=== PATIENT | male | born 1955 | race Caucasian/White ===

== ENCOUNTER → 2019-10-12 15:43 | Outpatient (CLI) | payer OTHER | END | disposition home or self-care (01) | LOC: D.LABREF 15:43 | PROVIDERS: ATTEND Urology | DX: I10 Essential (primary) hypertension (principal); R07.9 Chest pain, unspecified ==

== ENCOUNTER → 2019-10-18 08:08 | Outpatient (CLI) | payer OTHER | END | disposition home or self-care (01) | LOC: D.HCCECHO 08:08 | PROVIDERS: ATTEND Internal Medicine Cardiovascular Disease | DX: I10 Essential (primary) hypertension (principal); R07.9 Chest pain, unspecified ==

== ENCOUNTER 2019-10-29 11:52 | Outpatient (CLI) | payer OTHER ==
[~2019-10-29] VITALS: Ht 167.6 cm; Wt 90.5 kg
--- NOTE | ~2019-10-29 | HEMODYNAMI ---
PATIENT:ROBY HATCH MEDICAL RECORD: [id number] : 59 LOCATION:D.CAT ADMISSION DATE: 10/29/19 Generatedon:10/29/201914:33 Patient name: ROBY HATCH Patient #: [id number] SSN: [id number] : 1955 Date of study: 10/29/2019 Page: Of Hemodynamic Procedure Report Patient Data Patient Demographics Procedure consent was obtained First Name: ROBY Gender: Male Last Name: HOLDEN : 1955 [facility] Initial: TRACY Age: 64 year(s) Patient #: [id number] Race: Unknown SSN: [id number] Additional ID: [id number] Contact details Address: [address] [place] [address] State: [place] City: [place] Zip code: [address] Past Medical History Performed procedures and imaging results Date Procedure Procedure Results Comments Stress testing with Positive->High SPECT MPI risk Allergies Allergen Reaction Date Comments Reported Other allergy 10/29/2019 PCN, STATINS Admission Admission Data Admission Date: 10/29/2019 Admission Time: 11:52 Lab Results Lab Result Date: 10/29/2019 Lab Result Time: 0:00 Biochemistry Name Units Result Min Max BUN mg/dl 14 --(--*-)-- 7 18 Creatinine mg/dl 1.3 --(---*)-- 0.6 1.3 eGFR ml/min 59 *-(----)-- 90 120 NONAFRICAN CBC Name Units Result Min Max Hematocrit % 45.1 --(-*--)-- 42 54 Hemoglobin g/dl 15.8 --(--*-)-- 13.5 17.5 Procedure Procedure Types Cath Procedure Diagnostic Procedure C [facility] w/Coronaries Procedure Description Procedure Date Procedure Date: 10/29/2019 Procedure Start Time: 14:17 Procedure End Time: 14:32 Procedure Staff Name Function Kranthi Sierra MD Performing Physician Polo Rodriguez RN Nurse Yusra Saunders RT Scrub Brooklynn Mejía RT Monitor Linsey Aragon RT Monitor Procedure Data Cath Procedure Fluoroscopy Diagnostic fluoroscopy Total fluoroscopy Time: 3.8 time: 3.8 min min Diagnostic fluoroscopy Total fluoroscopy dose: 637 dose: 637 mGy mGy Contrast Material Contrast Material Type Amount (ml) Isovue 370 84 Entry Location Entry Primary Successful Side Size Upsize Upsize Entry Closure Mandel ccessful Closure Location (Fr) 1 (Fr) 2 (Fr) Remarks Device Remarks Radial Right 6 Fr Mechanical artery Short Compression Estimated blood loss: 5 ml Diagnostic catheters Device Type Used For End Catheter Placement DIAGNOSTIC Eric 110cm Procedure 5Fr catheter ([id number]) DIAGNOSTIC Ovando 110cm 5 Procedure Fr catheter (175134) Procedure Complications No complications Procedure Medications Medication Administration Route Dosage 0.9% NaCl I.V. 100 ml/hr Oxygen etCO2 Nasal cannula 2 l/min Heparin Flush Bag added to field 2 bags (1000units/500ml NS) Lidocaine 2% added to field 20 Radial Cocktail added to field 1 syringe (Verapamil 2mg/Nitro 400mcg/Heparin 1500units) Versed I.V. 2 mg Fentanyl I.V. 100 mcg Radial Cocktail I.A. 1 syringe (Verapamil 2mg/Nitro 400mcg/Heparin 1500units) Versed I.V. 2 mg Fentanyl I.V. 100 mcg Hemodynamics Rest HGB: 15.8 (g/dl) Heart Rate: 110 (bpm) Pressure Samples Time Site Value (mmHg) Purpose Heart Use Rate(bpm) 14:20 LV 124/-7,31 Snapshot 123 14:21 AO 87/56(64) Pullback 123 14:21 LV 123/-18,3 Pullback 123 Gradients Valve Time Site 1 Site 2 Mean SEP/DFP Peak To Heart Use (mmHg) (sec/min) Peak Rate (mmHg) (bpm) Aortic 14:21 LV AO 26 11 36 123 123/-18,3 87/56(64) Calculations Valve P-P Mean Valve Index Valve Source Name Gradient Area Flow (cm2) Aortic 36 26 36 26 Snapshots Pre Cath Intra NCS Post Cath Vital Signs Time Heart Resp SPO2 etCO2 NIBP (mmHg) Rhythm Pain Sedation Rate (ipm) (%) (mmHg) Status Level (bpm) 13:48:19 107 5 97 0 142/94(115) NSR 0 (11) 10(A) , No pain 13:52:26 108 3 95 30.6 133/98(107) NSR 0 (11) 10(A) , No pain 13:57:28 107 21 98 32.2 137/90(113) NSR 0 (11) 10(A) , No pain 14:01:34 110 15 96 29.2 134/94(113) NSR 0 (11) 10(A) , No pain 14:05:39 106 10 92 35.2 124/90(111) NSR 0 (11) 10(A) , No pain 14:09:41 109 17 93 36.7 128/95(107) NSR 0 (11) 10(A) , No pain 14:13:47 112 16 94 33.7 131/88(102) NSR 0 (11) 10(A) , No pain 14:17:53 110 11 92 1.4 122/90(102) NSR 0 (11) 9(A) , No pain 14:21:54 121 17 92 35.2 108/74(105) NSR 0 (11) 9(A) , No pain 14:25:54 112 16 92 37.4 106/76(99) NSR 0 (11) 10(A) , No pain 14:29:57 103 7 94 34.4 117/71(87) NSR 0 (11) 10(A) , No pain Medications Time Medication Route Dose Verified Delivered Reason Notes Effectiveness by by 13:49:35 0.9% NaCl I.V. 100 Polo Polo Per ml/hr Michael Rodriguez physician RN RN 13:49:45 Oxygen etCO2 2 l/min Polo Polo for low 02 Nasal Lorigan Lorigan sats cannula RN RN 13:49:57 Heparin Flush added 2 bags Polo Polo used for Bag to Lorigan Lorigan procedure (1000units/500ml field RN RN NS) 13:50:10 Lidocaine 2% added 20ml Polo Polo for local to vial Lorigan Lorigan anesthetic field DAWSON RN 13:50:20 Radial Cocktail added 1 Polo Polo used for (Verapamil to syringe Lorigan Lorigan procedure 2mg/Nitro field RN RN 400mcg/Heparin 1500units) 14:19:41 Versed I.V. 2 mg Polo Polo for sedation Michael Rodriguez RN RN 14:19:50 Fentanyl I.V. 100 mcg Polo Polo for sedation Michael Rodriguez RN, RN 14:20:02 Radial Cocktail I.A. 1 Polo Kranthi for (Verapamil syringe Michael Sierra MD vasodilation 2mg/Nitro RN 400mcg/Heparin 1500units) 14:21:40 Versed I.V. 2 mg Polo Polo for sedation Michael Rodriguez RN, RN 14:25:10 Fentanyl I.V. 100 mcg Polo Polo for sedation Michael Rodriguez RN, RN Procedure Log Time Note 13:36:47 Informed consent obtained and on chart 13:36:59 Polo Rodriguez RN sent for patient. Start room use. 13:37:01 Procedure Status Elective Heart Cath (OP). 13:37:03 Time tracking: Regular hours (M-F 7:00 - 5:00) 13:37:06 Plan of Care:Hemodynamics will remain stable., Cardiac rhythm will remain stable., Comfort level will be maintained., Respiratory function will remain adequate., Patient/ family verbilizes understanding of procedure., Procedure tolerated without complication., Recovers from procedure without complications.. 13:37:44 H&P Date Dictated: 10/05/2019 Within 30 days and on chart., H&P Addendum completed by physician on day of procedure. (MUST COMPLETE FOR ALL OUTPATIENTS). 13:38:00 Patient allergic to Other allergyPCN, STATINS 13:45:39 Patient received from Pre/Post Procedure Room to CCL 1 Alert and oriented. Tansferred to table in Supine position. 13:45:40 Warm blankets applied, and glo hugger turned on for patient comfort. 13:45:41 Correct patient and procedure confirmed by team. 13:45:41 ECG and BP/O2 sat monitors applied to patient. 13:47:07 Lab Result : BUN 14 mg/dl 13:47:07 Lab Result : Creatinine 1.3 mg/dl 13:47:07 Lab Result : eGFR NONAFRICAN 59 ml/min 13:47:07 Lab Result : Hemoglobin 15.8 g/dl 13:47:07 Lab Result : Hematocrit 45.1 % 13:47:14 Vital chart was started 13:47:15 Baseline sample Acquired. 13:47:19 Rhythm: sinus tachycardia 13:47:20 Full Disclosure recording started 13:47:29 Pre-procedure instructions explained to patient. 13:47:29 Pre-op teaching completed and patient verbalized understanding. 13:47:30 Family in patients room. 13:47:31 Patient NPO since Midnight. 13:47:33 Is the patient allergic to Iodine/contrast media? No. 13:47:34 Is patient on blood thinner?No 13:47:35 Patient diabetic? No. 13:47:39 Previous problem with sedation/anesthesia? No ? 13:47:40 Snore? Yes 13:47:41 Sleep apnea? Yes 13:47:43 Deviated septum? No 13:47:44 Opens mouth fully? Yes 13:47:45 Sticks out tongue? Yes 13:47:47 Airway obstruction? No ? 13:47:49 Dentures? No ? 13:47:53 Pre procedure: right dorsailis pedis pulse 1+ Palpable, but thready & weak; easily obliterated 13:47:55 Modified Shen's test Ulnar < 7 seconds 13:47:59 Patient pain scale 0/10 ?. 13:48:39 IV patent on arrival in left forearm with 0.9% NaCl at [facility]. 13:48:41 Lab results completed and on chart. 13:48:45 Right Radial & Right Groin area was prepped with chlora-prep and draped in sterile fashion 13:48:46 Alarms reviewed by R. N. 13:48:46 Sharps counted by scrub and verified by R.N. 13:49:35 0.9% NaCl 100 ml/hr I.V. was administered by Polo Rodriguez RN; Per physician; Verbal order read back and verified. 13:49:45 Oxygen 2 l/min etCO2 Nasal cannula was administered by Polo Rodriguez RN; for low 02 sats; Verbal order read back and verified. 13:49:57 Heparin Flush Bag (1000units/500ml NS) 2 bags added to field was administered by Polo Rodriguez RN; used for procedure; Verbal order read back and verified. 13:50:10 Lidocaine 2% 20ml vial added to field was administered by Polo Rodriguez RN; for local anesthetic; Verbal order read back and verified. 13:50:20 Radial Cocktail (Verapamil 2mg/Nitro 400mcg/Heparin 1500units) 1 syringe added to field was administered by Polo Rodriguez RN; used for procedure; Verbal order read back and verified. 13:52:57 Risk of Mortality: .1 13:53:00 Risk of blood transfusion: .1 13:53:02 Risk of GARLAND: 1 13:53:51 Stress Test: yes; abnormal ANTERIOR AND INFERIOR 13:58:36 Use device set Radial Dx or PCI 13:58:39 ACIST Syringe (21608) opened to sterile field. 13:58:39 Medline Cath Pack ([id number]) opened to sterile field. 13:58:41 Bag Decanter (2002S) opened to sterile field. 13:58:41 ACIST Hand Control (98434) opened to sterile field. 13:58:42 ACIST Manifold (40354) opened to sterile field. 13:58:43 Tegaderm 4 x 4 (1626W) opened to sterile field. 13:58:45 MBrace Wrist Support ([id number]) opened to sterile field. 13:58:47 NEEDLE Cook 21G 4cm Radial (Q83393) opened to sterile field. 13:58:48 SHEATH 6FR RAIN (0849656) opened to sterile field. 13:58:52 EMERALD Guide Wire (627-381) opened to sterile field. 14:14:52 --------ALL STOP TIME OUT------ 14:14:53 Final Timeout: patient, procedure, and site verified with staff and physician. All members of the team are in agreement. 14:14:56 Right Radial & Right Groin site verified by team. 14:15:00 Fire Safety Assessment: A--An alcohol-based skin anteseptic being used preoperatively., C--Open oxygen or nitrous oxide is being used., D--An ESU, laser, or fiber-optic light is being used. 14:15:03 Physical assessment completed. ASA score P 2 - A patient with mild systemic disease as per Kranthi Sierra MD. 14:15:30 3a) 45-59 Moderately reduced kidney function. 14:15:32 Maximum allowable contrast dose (3.7 X eGFR X 0.75)? ml. 14:15:34 Sedation plan: IV Moderate Sedation Medication:Versed, Fentanyl 14:16:51 Procedure started. 14:17:41 Local anesthetic to right radial artery with Lidocaine 2% by Kranthi Sierra MD.INITIAL ACCESS ONLY 14:19:02 A 6 Fr Short sheath was inserted into the Right Radial artery 14:19:41 Versed 2 mg I.V. was administered by Polo Rodriguez RN; for sedation; Verbal order read back and verified. 14:19:50 Fentanyl 100 mcg I.V. was administered by Polo Rodriguez RN; for sedation; Verbal order read back and verified. 14:20:02 Radial Cocktail (Verapamil 2mg/Nitro 400mcg/Heparin 1500units) 1 syringe I.A. was administered by Kranthi Sierra MD; for vasodilation; Verbal order read back and verified. 14:20:23 A DIAGNOSTIC Eric 110cm 5Fr catheter (140478) was advanced over the wire and used for Procedure. 14:20:37 Injector settings: Ml/sec: 5, Volume: 15, 14:20:55 LV gram done using RENEE 14:21:03 EF : 60 % 14:21:06 LV hemodynamics recorded. 14:21:38 LCA angiography performed. 14:21:40 Versed 2 mg I.V. was administered by Polo Rodriguez RN; for sedation; Verbal order read back and verified. 14:22:47 Catheter exchanged over wire. 14:22:53 A DIAGNOSTIC Ovando 110cm 5 Fr catheter (805195) was advanced over the wire and used for Procedure. 14:25:10 Fentanyl 100 mcg I.V. was administered by Polo Rodriguez RN; for sedation; Verbal order read back and verified. 14:26:35 LCA angiography performed. 14:28:24 RCA angiography performed. 14:29:42 ZEPHYR REGULAR TR BAND (597960) opened to sterile field. 14:29:52 Sheath removed intact; hemostasis achieved with Mechanical Compression to the Right Radial artery. 14:29:54 Procedure ended.(Physican Out) 14:30:04 Fluoroscopy time 03.80 minutes. 14:30:12 Fluoroscopy dose: 637 mGy 14:30:12 Flurop Dose total: 637 14:30:23 Dose Area Product 28935 mGy/cm. 14:30:29 Contrast amount:Isovue 370 84ml. 14:30:32 Maximum allowable dose exceeded? No. 14:30:33 Sharps counted by scrub and verified by R.N. 14:30:36 [place] band inflated with 10cc of air. 14:30:47 Post Procedure Pulses reassessed and unchanged 14:30:49 Post procedure: right dorsailis pedis pulse 2+ Normal; easily identifiable; not easily obliterated. 14:30:56 Post-procedure physical assessment completed. ASA score P 2 - A patient with mild systemic disease as per Kranthi Sierra MD. 14:30:59 Post procedure rhythm: unchanged. 14:31:02 Estimated blood loss: 5 ml 14:31:04 Post procedure instruction explained to patient.Patient verbalizes understanding. 14:31:04 Patient needs reinforcement of post procedure teaching. 14:31:36 Procedure and supply charges have been captured, reviewed, submitted and are correct. 14:31:42 Procedure Complication : No complications 14:31:44 Vital chart was stopped 14:31:47 [facility] Findings: mild to moderate CAD (<70%) 14:31:52 Operative report dictated upon procedure completion. 14:31:52 See physician's report for complete and final results. 14:31:54 Report given to Pre/Post Procedure Room. 14:31:57 Patient transfered to Pre/Post Procedure Room with Stretcher. 14:32:00 Procedure ended. 14:32:00 Full Disclosure recording stopped 14:32:11 End room use (Document Last) 14:32:53 End room use (Document Last) 14:33:12 End room use (Document Last) Device Usage Item Name Manufacture Quantity Catalog Hospital Part Current Minima l Lot# / Number Charge Number Stock Stock Serial# Code ACIST Acist 1 82173 873700 815472 503937 20 Syringe Medical (31732) Systems Inc Medline Medline 1 [id number] 263215 69098 938782 5 Cath Pack ([id number]) Bag Microtek 1 847089 82424 559381 5 Decanter Medical Inc. () ACIST Hand Acist 1 30576 718642 921863 568762 5 Control Medical (47296) Systems Inc ACIST Acist 1 52823 427485 447989 535944 5 Manifold Medical (11730) Systems Inc Tegaderm 4 3M 1 1626W 151969 054580 385672 5 x 4 (1626W) MBrace Advanced 1 140-0250-00 532681 32157 484355 5 Wrist Vascular Support Dynamics ([id number]) NEEDLE Shark Punch 1 D10903 451388 247707 924079 5 21G 4cm Radial (X92251) SHEATH 6FR Cardinal 1 0466100 200372 7196086 380827 5 [facility] Health (1139074) EMERALD Cardinal 1 502-857 390350 717621 848490 5 Guide Wire Health (779-300) DIAGNOSTIC Terumo 1 40-5023 171397 666305 771574 5 Eric 110cm 5Fr catheter (954930) DIAGNOSTIC Terumo 1 40-5013 266273 023115 990975 5 Ovando 110cm 5 Fr catheter (674097) ZEPHYR Cardinal 1 822679 685443 1995163 830574 5 REGULAR TR Health BAND (396358) Signature Audit [place] Stage Time Signature Unsigned Intra-Procedure 10/29/2019 Linsey Aragon 2:32:53 PM RT(R) Intra-Procedure 10/29/2019 Polo 2:33:12 PM Michael DAWSON Intra-Procedure 10/29/2019 Kranthi Sierra MD 2:33:27 PM [facility] [address] [place] [address]
[2019-10-29] MEDS ORDERED: VITAMIN C500 M1 PO (12:12)
[2019-10-29] MEDS ORDERED: MULTI-DAY VITAM1 TAB PO (12:12)
[2019-10-29] MEDS ORDERED: PEPCID40 MG PO (12:12)
[2019-10-29] MEDS ORDERED: NIASPAN500 MG PO (12:13)
[2019-10-29 12:27] VITALS: BP 153/101; Ht 167.6 cm; Wt 90.5 kg
[2019-10-29 12:34] LABS: BASOPHILS 0.3 % (0-2); EOSINOPHILS 1.2 % (0-7); HEMATOCRIT 45.1 % (42.0-54.0); HEMOGLOBIN 15.8 g/dL (13.5-17.5); IMMATURE GRANULOCYTES 0.3 % (0-5); LYMPHOCYTES 41.7 % (15-50); MCH 30.5 pg (26.0-34.0); MCV 87.1 fL (80.0-100.0); MEAN PLATELET VOLUME 8.9 fL (7.4-10.4); NEUTROPHILS 50.5 % (40-80); PLATELET COUNT 228 10x3/uL (130-400); RBC 5.18 10x6/uL (4.20-6.10); RDW 13.4 % (11.5-14.5); WBC 7.6 10x3/uL (4.8-10.8)
[2019-10-29 12:48] LABS: ALT (SGPT) 49 U/L (10-68); CALC OSMOLALITY 279 mosm/kg (275-300); CALCIUM 8.7 mg/dL (8.5-10.1); CARBON DIOXIDE 25.9 mmol/L (21.0-32.0); CHLORIDE - SERUM 101 mmol/L (98-107); CHOL - HDL RATIO 9.4 ratio (2.3-4.9); CHOLESTEROL, TOTAL 339 mg/dL (0-200); CREATININE - SERUM 1.3 mg/dL (0.6-1.3); GLUCOSE 97 mg/dL (74-106); HDL CHOLESTEROL 36 mg/dL (32-96); POTASSIUM - SERUM 3.4 mmol/L (3.5-5.1); SODIUM 140 mmol/L (136-145); UREA NITROGEN 14 mg/dL (7-18); eGFR NON AFRICAN AMERICAN 59 mL/min (90-120)
[2019-10-29 12:49] LABS: TRIGLYCERIDE 590 mg/dL (30-200)
--- NOTE | 2019-10-29 14:41 | NUR ---
PT ARRIVED BY STRETCHER. PLACED ON MONITORS. ASSESSMENT COMPLETED. VSS. CALL LIGHT WITHIN REACH.
--- NOTE | 2019-10-29 14:56 | NUR ---
PT RESTING COMFORTABLY. VSS. RIGHT Z BAND IN PLACE. NO BLEEDING/HEMATOMA NOTED. CALL LIGHT WITHIN REACH. VSS AT THIS TIME. CAP REFILL TO RIGHT HAND < 3 SECS. NO NEEDS AT THIS TIME. DENIES NAUSEA/PAIN.
--- NOTE | 2019-10-29 15:15 | NUR ---
CALLED PT'S BROTHER AND NOTIFIED HIM OF PT'S DISCHARGE TIME. HE VOICED UNDERSTANDING.
--- NOTE | 2019-10-29 15:30 | NUR ---
1cc OF AIR REMOVED FROM Z BAND. NO BLEEDING/HEMATOMA NOTED. CALL LIGHT WITHIN REACH. VSS. PT RESTING COMFORTABLY.
--- NOTE | 2019-10-29 15:50 | NUR ---
4cc OF AIR REMOVED FROM Z BAND. NO BLEEDING/HEMATOMA NOTED. CALL LIGHT WITHIN REACH. CAP REFILL TO RIGHT HAND <3 SECS. WARM TO TOUCH. DENIES NAUSEA/PAIN. SET UP WITH SANDWICH TRAY AND DRINK.
--- NOTE | 2019-10-29 16:05 | NUR ---
4cc OF AIR REMOVED FROM Z BAND. NO BLEEDING/HEMATOMA NOTED. CALL LIGHT WITHIN REACH.
--- NOTE | 2019-10-29 16:20 | NUR ---
Z BAND REMOVED AND DRESSING APPLIED. NO BLEEDING/HEMATOMA NOTED. RIGHT WRIST BRACE IN PLACE.
--- NOTE | 2019-10-29 16:34 | NUR ---
PIV D/C'D WITH CATH TIP INACT. TOLERATED WELL. DISCUSSED DISCHARGE INSTRUCTIONS WITH PT. HE VOICED UNDERSTANDING. PT INSTRUCTED TO GET UP AND DRESSED. NO ASSISTANCE NEEDED. CALL LIGHT WITHIN REACH.
--- NOTE | 2019-10-29 16:45 | NUR ---
PT AMBULATED TO RESTROOM. VOIDED WITHOUT DIFFICULTY. RIGHT WRIST DRESSING C/D/I. NO S/S OF HEMATOMA NOTED. PT TAKEN OUT TO VEHICLE BY WHEELCHAIR. NO S/S OF DISTRESS NOTED. ALL BELONGINGS AND PAPERWORK IN HAND.
== END 2019-10-29 16:45 | disposition home or self-care (01) ==
LOC: D.CATH 11:52
PROVIDERS: ATTEND Internal Medicine Cardiovascular Disease
DX: I20.9 Angina pectoris, unspecified (principal); R94.39 Abnormal result of other cardiovascular function study; R07.9 Chest pain, unspecified

== ENCOUNTER 2019-11-27 06:15 | Day surgery (SDC) | payer OTHER ==
[~2019-11-27] VITALS: Ht 167.6 cm; Wt 92.1 kg
[2019-11-27 07:03] VITALS: Ht 167.6 cm; Wt 92.1 kg
--- NOTE | 2019-11-27 08:32 | NUR ---
0810 EXPLAINED TO PATIENT POSTOP EXPECTATIONS WELL DISCHARGE CRITERIA. QUESTIONS ANSWERED. Jocelyne HOUSTON R.N.
--- NOTE | 2019-11-27 09:50 | NUR ---
[address] CLEMENT. LUZ MARINA Jimenez
--- NOTE | 2019-11-27 10:58 | OP ---
PATIENT NAME: ROBY HATCH MEDICAL RECORD: [id number] :59 LOCATION:.[facility] ADMISSION DATE: SURGEON: ETIENNE CLEMENT MD DATE OF OPERATION: 11/27/2019 SURGEON: Etienne Clement MD ANESTHESIA: TIVA by Dioni Borrego CRNA. DIAGNOSIS: Elevated PSA 3.42, bladder outlet obstruction. PROCEDURE: Cystoscopy, transrectal ultrasound, and prostate biopsy. FINDINGS: On cystoscopy, tight bladder neck. Single ureteral orifices bilaterally with no bladder tumors. Transrectal ultrasound showed a 41 gram prostate with hypoechoic areas and intraprostatic stones. SPECIMENS: Prostate biopsy cores. BLOOD LOSS: Minimal. CLINICAL HISTORY: This is a 64-year-old male, who has an elevated PSA. He also has a positive family history of prostate cancer. I saw him on 2017 and he was reluctant to have a prostate biopsy at that time. His PSA is now 3.42 on 07/18/2019. Back in December of 2017, the PSA was 4.03. He has also had episodes of urinary tract infections and pyuria. He has difficulty voiding with a slow urinary flow and hesitancy. He comes to have a transrectal ultrasound of the prostate and prostate biopsy as well as cystoscopy. HE IS ALLERGIC TO PENICILLIN, CORTICOSTEROIDS, AND STATINS. He was given Levaquin IV frickertron checker to the OR. DESCRIPTION OF PROCEDURE: The patient was given IV sedation. He was placed into lithotomy position. Cystoscopy was performed. Findings are as outlined above. The bladder was emptied through the cystoscope sheath and the scope was removed. We then introduced the transrectal ultrasound probe. Prostate size measurements were obtained. He has a size of 41 grams estimated. There are internal hypoechoic areas and intraprostatic stones. Sextant biopsies were obtained with at least 3 cores from each sextant. Once all the specimens were obtained then the procedure was terminated. The patient will be seen later this week to review the pathology results. TRANSINT:[id number] Voice Confirmation ID: [id number] DOCUMENT ID: [id number] ETIENNE CLEMENT MD at 1058 CC: [id number] DICTATION DATE: 11/27/19 0939 BATT MACHINE OPERATOR: 11/27/[address] [facility] [address] [place] [address]
--- NOTE | 2019-11-27 14:13 | NUR ---
1107 AWAKE & ALERT. DRESSED. GIVEN DISCHARGE INFORMATION INCLUDING: MED REC., RTC APPT, [facility] D/C INSTRUCTIONS, & POST CYSTOSCOPY & PROSTATE BIOPSY D/C INSTRUCTIONS. PT VOICED UNDERSTANDING. TO PRIVATE CAR PER WHEELCHAIR BY VOLUNTEER. HOME WITH SON KYLE HATCH. Jocelyne HOUSTON R.N.
== END 2019-11-27 11:07 | disposition home or self-care (01) ==
LOC: D.OPS 06:15 → D.PAN 08:00 → D.OPS 08:00 → D.PAN 14:15
PROVIDERS: ATTEND Urology
DX: R97.20 Elevated prostate specific antigen [PSA] (principal); N32.0 Bladder-neck obstruction; N30.01 Acute cystitis with hematuria

== ENCOUNTER → 2019-12-14 09:06 | Outpatient (CLI) | payer OTHER ==
[2019-11-27 07:03] VITALS: BMI 32.8
[~2019-12-14 09:06] MED LIST: BAYER CHEWABLE81 MG PO; FENOFIBRATE160 MG PO; MULTI-DAY VITAM1 TAB PO; NIASPAN500 MG PO; OMEGA-3100 MG PO; OSTEO BI-FLEX1 EAC1 PO; PEPCID40 MG PO; VITAMIN C500 M1 PO
== END | disposition home or self-care (01) ==
LOC: D.NM 09:00
PROVIDERS: ATTEND Urology
DX: C61 Malignant neoplasm of prostate (principal)

== ENCOUNTER → 2020-05-12 22:07 | Outpatient (CLI) | payer OTHER ==
[2019-11-27 07:03] VITALS: BMI 32.8
[~2020-05-12 22:07] MED LIST changes: +OMEPRAZOLE20 M1 PO
== END | disposition home or self-care (01) ==
LOC: D.LAB 22:07
PROVIDERS: ATTEND Urology
DX: R31.9 Hematuria, unspecified (principal); R82.90 Unspecified abnormal findings in urine

== ENCOUNTER 2020-05-15 07:59 | Day surgery (SDC) | payer OTHER ==
[2020-05-14 15:54] LABS: BASOPHILS 0.2 % (0-2); EOSINOPHILS 2.2 % (0-7); HEMOGLOBIN 14.2 g/dL (13.5-17.5); IMMATURE GRANULOCYTES 0.2 % (0-5); LYMPHOCYTES 40.1 % (15-50); MCH 29.8 pg (26.0-34.0); MCHC 33.8 g/dL (31.0-37.0); MCV 88.2 fL (80.0-100.0); MEAN PLATELET VOLUME 8.8 fL (7.4-10.4); MONOCYTES 8.5 % (2-11); NEUTROPHILS 48.8 % (40-80); PLATELET COUNT 192 10x3/uL (130-400); RBC 4.76 10x6/uL (4.20-6.10); RDW 13.3 % (11.5-14.5)
[2020-05-14 16:09] LABS: APTT 23.9 SECONDS (22.8-39.4); INR 1.06 (0.85-1.17); PROTIME 13.8 SECONDS (11.6-15.0)
[~2020-05-15] VITALS: Ht 165.1 cm; Wt 89.4 kg
[2020-05-15 08:37] VITALS: BP 144/90; Ht 165.1 cm; Wt 89.4 kg
--- NOTE | 2020-05-15 11:50 | NUR ---
PT DC INSTRUCTIONS REVIEWED AT THIS TIME, PT VERBALIZES UNDERSTANDING. IV REMOVED AT THIS TIME, INTACT, NO REDNESS OR SWELLING NOTED AT SITE.
--- NOTE | 2020-05-15 12:10 | NUR ---
PT LEAVING OPS AT THIS TIME VIA WC, NAD NOTED.
--- NOTE | 2020-05-16 12:55 | OP ---
PATIENT NAME: ROBY HATCH MEDICAL RECORD: [id number] :59 LOCATION:D.OPS ADMISSION DATE: SURGEON: ETIENNE CLEMENT MD DATE OF OPERATION: 05/15/2020 SURGEON: Etienne Clement MD ANESTHESIA: TIVA by Papo Tobar CRNA. DIAGNOSIS: Prostate cancer with bladder outlet obstruction. PROCEDURE: UroLift times 4. FINDINGS: On cystoscopy, obstructive lateral lobes and bladder neck. Single ureteral orifices bilaterally with no bladder tumors. Trabeculated bladder. CLINICAL HISTORY: This is a 64-year-old male, who has an elevated PSA level. He was found to have prostate cancer, stage TIC prostate biopsy. He is currently under observation. He has had issues with bladder outlet obstruction and recurrent urinary tract infections. He comes now to have the UroLift procedure done. He was given gentamicin IV technology education teacher to the OR. DESCRIPTION OF PROCEDURE: The patient was given IV sedation. He was placed in the lithotomy position and prepped and draped. The UroLift scope was introduced. Findings are as outlined above. At 1.5 cm distal to the bladder neck at the anterolateral sulcus, 1 unit was placed on each side. Then, at the level of the verumontanum at the anterolateral sulcus, 1 unit was placed on each side. We then used the obturator and found that there was nice anterior urethral channel. The bladder neck was already nicely opened up just from placement of the 2 UroLift units. There was no further need to put more units. The bladder was left partly full with irrigation fluid for a voiding trial. The scope was then removed. I will see the patient in followup in 1 month's time. TRANSINT:[id number] Voice Confirmation ID: [id number] DOCUMENT ID: [id number] ETIENNE CLEMENT MD at 1255 CC: [id number] DICTATION DATE: 05/15/20 1119 RAGMAN: 05/15/20 2228 [facility] 05/15/[address] [address]
== END 2020-05-15 12:10 | disposition home or self-care (01) ==
LOC: D.OPS 07:59 → D.PAN 10:00 → D.OPS 10:00
PROVIDERS: Anesthesiology; ATTEND Urology
DX: C61 Malignant neoplasm of prostate (principal); N32.0 Bladder-neck obstruction; N30.01 Acute cystitis with hematuria